=== PATIENT | female | born 1990 | race Native Hawaiian/Other Pacific Islander ===

== ENCOUNTER 2018-06-18 02:10 | Emergency (ER) | payer BC, OTHER ==
[~2018-06-18] VITALS: Ht 160 cm; Wt 61.2 kg
[2018-06-18] MEDS ORDERED: NEOMY/BACITRA/POLYMYXIN B OINT UD PACKET TP ONE (02:37)
[2018-06-18] MEDS ORDERED: CEPHALEXIN MONOHYDRATE 500 MG CAPSULE ONE (02:43)
[2018-06-18] MEDS ORDERED: IBUPROFEN 600 MG TABLET ONE (02:43)
[2018-06-18] MEDS: IBUPROFEN 600 MG TABLET PO ONE (02:45)
[2018-06-18] MEDS: CEPHALEXIN MONOHYDRATE 500 MG CAPSULE PO ONE (02:45)
[2018-06-18] MEDS: LIDOCAINE HCL 1% 20 ML VIAL IJ ONE (02:45)
--- NOTE | 2018-06-18 02:47 | NUR ---
Patient discharged to home in stable conditon. Written and verbal after care instructions given. Patient verbalizes understanding of instructions.
[2018-06-18 02:49] VITALS: BP 126/84
== END 2018-06-18 02:50 | disposition home or self-care (01) ==
LOC: ER 02:17
DX: L72.3 Sebaceous cyst (principal)
CPT/HCPCS: A4663; J3490

== ENCOUNTER 2020-03-08 06:23 | Emergency (ER) | payer BC, OTHER ==
[~2020-03-08] VITALS: Ht 160 cm; Wt 63.5 kg
--- NOTE | 2020-03-08 06:35 | NUR ---
Dr Spann at bedside for MSE. Pt is here for Covid19 swab for employees, possible exposure from patients. Swab done. DC instructions for Covid 19 reinforced. Will let employee know results in 24 to 48 hours. Verbalized understanding. Pt walked out of ER in stable condition.
[2020-03-08 06:42] VITALS: BP 117/76
== END 2020-03-08 06:43 | disposition home or self-care (01) ==
LOC: ER 06:23
DX: Z03.818 Encounter for observation for suspected exposure to other biological agents ruled out (principal)
CPT/HCPCS: 99283; U0003; A4663

== ENCOUNTER 2020-07-21 05:05 | Emergency (ER) | payer BC, OTHER ==
[~2020-07-21] VITALS: Ht 160 cm; Wt 67.1 kg
--- NOTE | 2020-07-21 05:20 | NUR ---
Jimmie Mccullough at bedside for MSE.
[2020-07-21] MEDS ORDERED: LIDOCAINE VISCUS 2% 15 ML UDC MM ONE (05:30)
[2020-07-21] MEDS ORDERED: MAG HYDROX/AL HYDROX/SIMETH 30 ML LIQUID UDC PO ONE (05:30)
[2020-07-21] MEDS ORDERED: DICYCLOMINE HCL LIQ 10 MG/5 ML UDC PO ONE (05:30)
[2020-07-21] MEDS ORDERED: PANTOPRAZOLE SODIUM 40 MG VIAL IV ONE (05:30)
[2020-07-21] MEDS ORDERED: PANTOPRAZOLE SODIUM 40 MG VIAL ONE (05:39)
[2020-07-21] MEDS ORDERED: MAG HYDROX/AL HYDROX/SIMETH 30 ML LIQUID UDC ONE (05:39)
[2020-07-21] MEDS ORDERED: LIDOCAINE VISCUS 2% 15 ML UDC ONE (05:39)
[2020-07-21] MEDS ORDERED: DICYCLOMINE HCL LIQ 10 MG/5 ML UDC ONE (05:40)
[2020-07-21 05:44] LABS: BASOPHILS # (AUTO) 0.1 K/uL (0.0-8.0); BASOPHILS % (AUTO) 1.4 % (0.0-2.0); EOSINOPHILS # (AUTO) 0.2 K/uL (0.0-0.7); EOSINOPHILS % (AUTO) 3.7 % (0.0-7.0); HEMATOCRIT 41.3 % (31.2-41.9); HEMOGLOBIN 14.1 g/dL (10.9-14.3); LYMPHOCYTES # (AUTO) 1.3 K/uL (20.0-40.0); LYMPHOCYTES % (AUTO) 19.7 % (20.5-51.5); MEAN CORPUSCULAR HEMOGLOBIN 30.6 uug (24.7-32.8); MEAN CORPUSCULAR HGB CONC 34 g/dL (32.3-35.6); MEAN CORPUSCULAR VOLUME 89.8 fL (75.5-95.3); MONOCYTES # (AUTO) 0.5 K/uL (2.0-10.0); MONOCYTES % (AUTO) 7.5 % (0.0-11.0); NEUTROPHILS # (AUTO) 4.6 K/uL (1.8-8.9); NEUTROPHILS % (AUTO) 67.7 % (38.5-71.5); PLATELET COUNT (AUTO) 228 K/uL (179-408); RED BLOOD CELL COUNT(AUTO) 4.59 MIL/uL (3.63-4.92); WHITE BLOOD COUNT (AUTO) 6.8 K/uL (3.8-11.8)
[2020-07-21 05:51] LABS: CREATININE 0.8 mg/dL (0.6-1.3); POTASSIUM 4.1 mmol/L (3.5-5.1)
[2020-07-21 05:57] LABS: BILIRUBIN,DIRECT 0.1 mg/dL (0.0-0.2); BILIRUBIN,TOTAL 0.5 mg/dL (0.2-1.0); TOTAL PROTEIN, SERUM 9.1 g/dL (6.4-8.2)
[2020-07-21 06:22] LABS: *BILIRUBIN,URIN NEGATIVE (NEGATIVE); *BLOOD, URINE NEGATIVE (NEGATIVE); *CLARITY,URINE SLIGHTLY CLOUDY (CLEAR); *COLOR,URINE YELLOW (YELLOW); *KETONES,URINE NEGATIVE (NEGATIVE); LEUKOCYTE ESTERASE ,URINE 1+ (NEGATIVE); NITRITE, URINE NEGATIVE (NEGATIVE); UGLUCOSE NEGATIVE (NEGATIVE)
[2020-07-21 06:23] LABS: *URINE HCG, QUAL NEGATIVE (NEGATIVE)
--- NOTE | 2020-07-21 06:27 | NUR ---
BRYANT eugene at bedside.
[2020-07-21] MEDS ORDERED: KETOROLAC TROMETHAMINE 30 MG INJ ONE (06:38)
[2020-07-21] MEDS ORDERED: KETOROLAC TROMETHAMINE 30 MG INJ IVP ONE (06:45)
--- NOTE | 2020-07-21 07:06 | NUR ---
Patient cleared for discharged to home in stable condition. Written and verbal after care instructions given. Patient verbalizes understanding of instructions. Stressed follow up with PCP or surgery, or return to ER for worsening s/s. IV removed. Catheter intact and site benign. Pressure and 4x4 gauze applied to site. No bleeding noted. Ambulated out of er in steady gait.
[2020-07-21 07:07] VITALS: BP 144/78
[2020-07-21 13:50] LABS: BACTERIA,URINE FEW /HPF (NONE SEEN); RBC,URINE NONE SEEN /HPF (0-3); SQUAMOUS EPITHELIAL CELL,UR FEW /HPF (NONE SEEN)
== END 2020-07-21 07:10 | disposition home or self-care (01) ==
LOC: ER 05:10
DX: R10.10 Upper abdominal pain, unspecified (principal); R03.0 Elevated blood-pressure reading, without diagnosis of hypertension
CPT/HCPCS: 36415; 76700; 80048; 80076; 81001; 83690; 84703; 85025; 87086; 96374; 96375; 99284; C9113; J1885; A4663

== ENCOUNTER → 2021-01-28 | Outpatient (CLI) | payer BC, OTHER ==
[2021-01-28 05:19] LABS: BASOPHILS # (AUTO) 0.1 K/uL (0.0-8.0); BASOPHILS % (AUTO) 0.9 % (0.0-2.0); EOSINOPHILS # (AUTO) 0.3 K/uL (0.0-0.7); EOSINOPHILS % (AUTO) 4.1 % (0.0-7.0); HEMATOCRIT 38.9 % (31.2-41.9); HEMOGLOBIN 13.1 g/dL (10.9-14.3); LYMPHOCYTES # (AUTO) 2.1 K/uL (20.0-40.0); LYMPHOCYTES % (AUTO) 30.5 % (20.5-51.5); MEAN CORPUSCULAR HEMOGLOBIN 30.4 uug (24.7-32.8); MEAN CORPUSCULAR HGB CONC 34 g/dL (32.3-35.6); MEAN CORPUSCULAR VOLUME 90.3 fL (75.5-95.3); MONOCYTES # (AUTO) 0.5 K/uL (2.0-10.0); MONOCYTES % (AUTO) 7.5 % (0.0-11.0); NEUTROPHILS # (AUTO) 3.9 K/uL (1.8-8.9); PLATELET COUNT (AUTO) 264 K/uL (179-408); RED BLOOD CELL COUNT(AUTO) 4.31 MIL/uL (3.63-4.92); WHITE BLOOD COUNT (AUTO) 6.8 K/uL (3.8-11.8)
[2021-01-28 05:27] LABS: CREATININE 0.8 mg/dL (0.6-1.3); POTASSIUM 3.9 mmol/L (3.5-5.1); TOTAL PROTEIN, SERUM 8.7 g/dL (6.4-8.2)
[2021-01-28 05:32] LABS: *BILIRUBIN,URIN NEGATIVE (NEGATIVE); *BLOOD, URINE NEGATIVE (NEGATIVE); *KETONES,URINE NEGATIVE (NEGATIVE); *UROBILINOGEN,URINE 0.2 E.U./dl (NORMAL); LEUKOCYTE ESTERASE ,URINE TRACE (NEGATIVE); NITRITE, URINE NEGATIVE (NEGATIVE); PH,URINE 6.5 (5.0-8.0); UGLUCOSE NEGATIVE (NEGATIVE)
[2021-01-28 05:34] LABS: THYROID STIMULATING HORMONE 1.942 mIU/mL (0.358-3.740)
[2021-01-28 05:42] LABS: *CLARITY,URINE HAZY (CLEAR); *COLOR,URINE STRAW (YELLOW); BACTERIA,URINE MODERATE /HPF (NONE SEEN); RBC,URINE 0-3 /HPF (0-3); SQUAMOUS EPITHELIAL CELL,UR MODERATE /HPF (NONE SEEN)
== END | disposition home or self-care (01) ==
LOC: LAB 04:53
PROVIDERS: ATTEND Family Medicine
DX: Z00.01 Encounter for general adult medical examination with abnormal findings (principal)
CPT/HCPCS: 36415; 82306; 84443; 85025; 87086

== ENCOUNTER 2021-04-19 06:39 | Outpatient (CLI) | payer BC, OTHER | END 2021-04-19 23:59 | disposition home or self-care (01) | LOC: LAB 06:39 | PROVIDERS: ATTEND Surgery | DX: Z01.812 Encounter for preprocedural laboratory examination (principal); Z20.822 Contact with and (suspected) exposure to COVID-19 ==

== ENCOUNTER 2021-04-21 05:38 | Day surgery (SDC) | payer BC, OTHER ==
[2021-04-21] MEDS ORDERED: DEXAMETHASONE SOD PHOSPHATE 4 MG INJ IV ONE (05:39)
[2021-04-21] MEDS ORDERED: GLYCOPYRROLATE 0.2 MG/ML VIAL IV ONE (05:39)
[2021-04-21] MEDS ORDERED: PHENYLEPHRINE 10 MG/1 ML VIAL IV ONE (05:39)
[2021-04-21] MEDS ORDERED: IV NORMAL SALINE 1000 ML BAG IV ONE (05:39)
[2021-04-21] MEDS ORDERED: KETOROLAC TROMETHAMINE 30 MG INJ IM ONE (05:39)
[2021-04-21] MEDS ORDERED: ONDANSETRON 4 MG/2 ML VIAL IV ONE (05:39)
[2021-04-21] MEDS ORDERED: PROPOFOL 200 MG/20 ML BOTTLE IV ONE (05:39)
[2021-04-21] MEDS ORDERED: IV LACTATED RINGERS SOLUTION 1,000 ML BAG IV ONE (05:39)
[2021-04-21] MEDS ORDERED: FENTANYL CITRATE 100 MCG/2 ML AMPUL ONE ×2 (07:24→09:06)
[2021-04-21] MEDS ORDERED: MIDAZOLAM HCL 2 MG/2 ML VIAL ONE (07:24)
[2021-04-21] MEDS ORDERED: ROCURONIUM BROMIDE 50 MG/5 ML VIAL ONE (07:24)
[2021-04-21] MEDS ORDERED: BUPIVACAINE/EPI PF 0.25% 30 ML VIAL ONE (07:25)
[2021-04-21] MEDS ORDERED: ONDANSETRON 4 MG/2 ML VIAL ONE (09:05)
== END 2021-04-21 10:55 | disposition home or self-care (01) ==
LOC: DS 05:38
PROVIDERS: ATTEND Surgery
DX: K80.10 Calculus of gallbladder with chronic cholecystitis without obstruction (principal); E78.5 Hyperlipidemia, unspecified; D64.9 Anemia, unspecified; Z79.899 Other long term (current) drug therapy; Z98.890 Other specified postprocedural states
CPT/HCPCS: 36415; 85610; 85730; A4663; J1100; J1885; J2250; J2370; J2405; J3010; J3490; J7030; J7120

== ENCOUNTER 2023-04-10 05:43 | Outpatient (CLI) | payer BC, OTHER ==
[2023-04-10 07:06] LABS: BILIRUBIN,DIRECT 0.1 mg/dL (0.0-0.2); BILIRUBIN,TOTAL 0.6 mg/dL (0.2-1.0); TOTAL PROTEIN, SERUM 8.3 g/dL (6.4-8.2)
[2023-04-11 10:07] LABS: HEPATITIS A AB, TOTAL Positive (Negative); HEPATITIS B SURFACE AG Negative (Negative)
== END 2023-04-10 23:59 | disposition home or self-care (01) ==
LOC: LAB 05:43
PROVIDERS: ATTEND Family Medicine
DX: R94.5 Abnormal results of liver function studies (principal)
CPT/HCPCS: 36415; 86708; 86803; 87340

== ENCOUNTER 2023-11-01 02:26 | Emergency (ER) | payer BC, OTHER ==
[~2023-11-01] VITALS: Ht 160 cm; Wt 72.6 kg
[2023-11-01] MEDS ORDERED: SULF1TAB48 PO (02:53)
[2023-11-01] MEDS ORDERED: CEPH500T PO (02:53)
[2023-11-01] MEDS ORDERED: CEFTRIAXONE 1 G VIAL IM ONE (03:00)
[2023-11-01] MEDS ORDERED: SULFAMETH/TRIMETH 800/160 MG TABLET PO ONE (03:00)
[2023-11-01] MEDS ORDERED: LIDOCAINE HCL 2% 20 ML VIAL ONE (03:00)
[2023-11-01] MEDS ORDERED: SULFAMETH/TRIMETH 800/160 MG TABLET ONE (03:00)
[2023-11-01] MEDS ORDERED: CEFTRIAXONE 1 G VIAL ONE (03:00)
[2023-11-01] MEDS ORDERED: LIDOCAINE HCL 1% 20 ML VIAL ONE (03:02)
[2023-11-01 03:16] VITALS: BP 130/79; O2SAT 98
== END 2023-11-01 03:16 | disposition home or self-care (01) ==
LOC: ER 02:46
DX: L73.1 Pseudofolliculitis barbae (principal); Z98.890 Other specified postprocedural states; Z79.899 Other long term (current) drug therapy
CPT/HCPCS: 99283; 96372; J0696; J3490; A4606; A4663

== ENCOUNTER 2024-02-29 22:25 | Emergency (ER) | payer BC, OTHER ==
[~2024-02-29] VITALS: Ht 160 cm; Wt 70.3 kg
[~2024-02-29 22:25] MED LIST: CEPH500T PO; SULF1TAB48 PO
[2024-02-29] MEDS ORDERED: AZIT250T PO (23:00)
[2024-03-01 00:07] VITALS: BP 138/80; TEMP 97.8; O2SAT 97
== END 2024-02-29 23:41 | disposition home or self-care (01) ==
LOC: ER 22:30
DX: H66.91 Otitis media, unspecified, right ear (principal); Z79.2 Long term (current) use of antibiotics; Z79.899 Other long term (current) drug therapy
CPT/HCPCS: A4606; A4663

== ENCOUNTER 2025-06-09 00:10 | Emergency (ER) | payer BC, OTHER ==
[~2025-06-09] VITALS: Ht 160 cm; Wt 70.3 kg
[~2025-06-09 00:10] MED LIST changes: +AZIT250T PO
[2025-06-09 00:16] VITALS: BP 147/88
[2025-06-09] MEDS ORDERED: NIRM1TAB PO (00:23)
[2025-06-09 00:40] VITALS: BP 147/88; TEMP 98; O2SAT 98
== END 2025-06-09 00:40 | disposition home or self-care (01) ==
LOC: ER 00:28
DX: U07.1 COVID-19 (principal); J02.9 Acute pharyngitis, unspecified; M25.50 Pain in unspecified joint; M79.10 Myalgia, unspecified site; R09.81 Nasal congestion; Z88.7 Allergy status to serum and vaccine; Z90.49 Acquired absence of other specified parts of digestive tract
CPT/HCPCS: A4606; A4663